=== PATIENT | male | born 1960 | race Hispanic/Latino ===

== ENCOUNTER 2018-12-01 23:03 | Inpatient (IN) | payer MEDICARE ==
[2018-12-01 23:14] VITALS: BMI 24.3
[2018-12-01 23:42] LABS: BASO % 0.3 % (0.0-2.0); EOS # 0.1 K/uL (0.0-0.7); EOS % 1.2 % (0.0-4.0); HEMOGLOBIN 11.9 g/dL (12.0-18.0); LYMPH # 1.7 K/uL (1.0-4.3); LYMPH % 32.7 % (20.0-40.0); MEAN CELL VOLUME 102.5 fL (80.0-94.0); MEAN CORPUSCULAR HEMOGLOBIN 35.7 pg (27.0-31.0); MEAN CORPUSCULAR HGB CONC 34.8 g/dL (33.0-37.0); MEAN PLATELET VOLUME 7.3 fL (7.2-11.7); MONO # 0.5 K/uL (0.0-0.8); NEUT % 55.8 % (50.0-75.0); NRBC % 0.1 % (0.0-2.0); RBC 3.34 Mil/uL (4.40-5.90); RED CELL DISTRIBUTION WIDTH 14.6 % (11.5-14.5); WHITE BLOOD COUNT 5.3 K/uL (4.8-10.8)
[2018-12-01 23:48] LABS: URINE CLARITY Clear (Clear); URINE COLOR STRAW (YELLOW); URINE GLUCOSE (UA) NEGATIVE (Normal)
[2018-12-01 23:49] LABS: URINE BILIRUBIN NEGATIVE (NEGATIVE); URINE BLOOD SMALL (NEGATIVE); URINE LEUKOCYTE ESTERASE NEGATIVE Leu/uL (Negative); URINE PROTEIN 30 mg/dL (NEGATIVE); URINE UROBILINOGEN 0.2 mg/dL (0.2-1.0)
[2018-12-01 23:55] LABS: ALB/GLOB RATIO 1.3 (1.0-2.1); ALBUMIN 4.7 g/dL (3.5-5.0); ALT/SGPT 22 U/L (21-72); AST/SGOT 55 U/L (17-59); BLOOD UREA NITROGEN 16 mg/dL (9-20); CALCIUM 8.9 mg/dl (8.6-10.4); GFR NON-AFRICAN AMERICAN > 60
[2018-12-01 23:58] LABS: BARBITURATES, UR NEGATIVE (NEGATIVE); BENZODIAZEPINES, UR NEGATIVE (NEGATIVE); OPIATES, UR NEGATIVE (NEGATIVE); PHENCYCLIDINE, UR NEGATIVE (NEGATIVE)
--- NOTE | 2018-12-02 01:29 | C.PDOC ---
History Of Present Illness 57 year old male presents for ETOH detox, last drink was a few hours BED AND BREAKFAST INNKEEPER. Denies any complaints at this time. Time Seen by Provider: 12/01/18 23:21 Chief Complaint (Nursing): Psychiatric Evaluation History Per: Patient History/Exam Limitations: no limitations Onset/Duration Of Symptoms: Hrs Current Symptoms Are (Timing): Still Present Suicide/Self Injury Attempted (Context): None Recent travel outside of the [place]: No Past Medical History Reviewed: Historical Data, Nursing Documentation, Vital Signs Vital Signs: Last Vital Signs Temp 98.4 F 12/01/18 23:15 Pulse 80 12/01/18 23:15 Resp 20 12/01/18 23:15 BP 171/90 H 12/01/18 23:15 Pulse Ox 97 12/01/18 23:15 Family History: States: No Known Family Hx - Social History Hx Alcohol Use: Yes Hx Substance Use: No - Immunization History Hx Tetanus Toxoid Vaccination: Yes Hx Influenza Vaccination: Yes Hx Pneumococcal Vaccination: No Review Of Systems Constitutional: Negative for: Fever, Chills Cardiovascular: Negative for: Chest Pain, Palpitations Respiratory: Negative for: Cough, Shortness of Breath Gastrointestinal: Negative for: Nausea, Vomiting Neurological: Negative for: Weakness, Numbness Physical Exam - Physical Exam Appears: Non-toxic Skin: Warm Head: Atraumatic, Normacephalic Eye(s): bilateral: Normal Inspection Oral Mucosa: Moist Chest: Symmetrical, No Tenderness Cardiovascular: Rhythm Regular Respiratory: Normal Breath Sounds, No Rales, No Rhonchi, No Wheezing Gastrointestinal/Abdominal: Soft, No Tenderness Extremity: Other (Abrasions to right upper extremity and right lower extremity) Neurological/Psych: Oriented x3, Normal Speech Gait: Steady ED Course And Treatment - Laboratory Results Result Diagrams: 12/01/18 23:34 12/01/18 23:34 Lab Results: Total Bilirubin 0.5 mg/dL (0.2-1.3) 12/01/18 23:34 AST 55 U/L (17-59) 12/01/18 23:34 ALT 22 U/L (21-72) 12/01/18 23:34 Alkaline Phosphatase 70 U/L (38-126) 12/01/18 23:34 Total Protein 8.2 g/dL (6.3-8.3) 12/01/18 23:34 Albumin 4.7 g/dL (3.5-5.0) 12/01/18 23:34 Globulin 3.5 gm/dL (2.2-3.9) 12/01/18 23:34 Albumin/Globulin Ratio 1.3 (1.0-2.1) 12/01/18 23:34 Urine Color Straw (YELLOW) 12/01/18 23:34 Urine Clarity Clear (Clear) 12/01/18 23:34 Urine pH 6.0 (5.0-8.0) 12/01/18 23:34 Ur Specific [place] 1.010 (1.003-1.030) 12/01/18 23:34 Urine Protein 30 mg/dL (NEGATIVE) 12/01/18 23:34 Urine Glucose (UA) Negative mg/dL (Normal) 12/01/18 23:34 Urine Ketones Negative mg/dL (NEGATIVE) 12/01/18 23:34 Urine Blood Small (NEGATIVE) 12/01/18 23:34 Urine Nitrate Negative (NEGATIVE) 12/01/18 23:34 Urine Bilirubin Negative (NEGATIVE) 12/01/18 23:34 Urine Urobilinogen 0.2 mg/dL (0.2-1.0) 12/01/18 23:34 Ur Leukocyte Esterase Negative Keith/uL (Negative) 12/01/18 23:34 Urine RBC (Auto) 1 /hpf (0-3) 12/01/18 23:34 O2 Sat by Pulse Oximetry: 97 (Room air) Pulse Ox Interpretation: Normal Progress Note: Blood work and urinalysis ordered. Crisis notified. Patient is medically cleared, accepted into detox unit under Dr. Burton. - PA / HEM INSPECTOR / Resident Statement MD/DO has reviewed & agrees with the documentation as recorded. - Scribe Statement The provider has reviewed the documentation as recorded by the Scribe Quirino Donis All medical record entries made by the Scribe were at my direction and personally dictated by me. I have reviewed the chart and agree that the record accurately reflects my personal performance of the history, physical exam, medical decision making, and the department course for this patient. I have also personally directed, reviewed, and agree with the discharge instructions and disposition.
--- NOTE | 2018-12-02 05:10 | PCM.BM ---
<Andrzej Koch - Last Filed: 12/02/18 05:07> Treatment Plan Problems - Problems identified on initial assessmt Ineffective Family Coping: Compromised Date Initiated: 12/02/18 Time Initiated: 04:30 Assessment reference: NA Status: Active Knowledge Deficit: Alcohol Use Date Initiated: 12/02/18 Time Initiated: 04:30 Assessment reference: NA Status: Active Treatment assets and liabiliti Patient Assests: cooperative, ADL independent, good support system, cognitively intact Patient Liabilities: substance abuse - Milieu Protocol Maintain good personal hygiene: daily Encourage regular showers, daily Remind patient to perform daily oral care, daily Assist patient to perform ADL's Maintain personal safety: every shift Educate patient to report safety concerns to staff, every shift Monitor environment for contraband/sharps Medication safety: Monitor for expected outcome, potential side effects: every shift, Assess barriers to learning: every shift, Assess readiness for medication education: every shift <Rossy Burton - Last Filed: 12/05/18 14:37> - Diagnosis (1) Opioid use disorder, severe, dependence Status: Acute Interventions: 12/05/18 14:37 * Assess 7x/week regarding severity of withdrawal * Educate regarding risks, benefits, side effects and alternatives of medications * Use Motivational Interviewing for abstinence * Use CBT for relapse prevention * Medication management for withdrawal symptoms * Encourage medication assisted treatment *
--- NOTE | 2018-12-02 08:44 | PCM.PSYCH ---
Initial Psychiatric Evaluation - Initial Psychiatric Evaluation Type of Admission: Voluntary Legal Status: Capacity Chief Complaint (in patient's own words): "Too much alcohol" History of Present Illness and Precipitating Events: The pt is converted to INPAT status from OBS, b/c he started to withdraw significantly. Patient is seen, chart reviewed and plan discussed with team. Patient is a 57 year old male, with 4 adult children. He has been living in a house with a friend who is paraplegic. Patient has been acting as caregiver to his friend. He is currently unemployed, on disability. Friend's son is now taking care of him. Patient is presenting to detox for alcohol use, he drinks 1 quart of fireball per day. He has been drinking for 20 years, with a period of 1 year sobriety. He denies going to any detox facilities in the past. His girlfriend had recently in August 2018 of cardiac arrest, and he attributes his increased drinking to this incidence. Patient is currently experiencing withdrawal symptoms of nausea, chills, tremors and has history of DTs. Patient denied other recreational drug use, smokes a pack of cigarettes per day of past 30+ years. He describes his mood as feeling very depressed and anxious recently. He denied suicidal and homicidal ideations but he sometimes wishes he were . Post discharge he would like to go back home to take care of friend and attend outpatient AA meetings with his son who is also a recovering alcoholic. Psych Hx Denies Fam Psych HX Son has alcoholism PMHx Recent falls, has scars on his skin Current Medications: Active Medications Generic Name Dose Route Start Last Admin Trade Name Freq PRN Reason Stop Dose Admin Clonidine HCl 0.1 mg 12/02/18 04:10 12/02/18 04:33 Catapres PO 0.1 mg Q6 PRN Administration Symptoms of alcohol withdrawl Hydroxyzine HCl 25 mg 12/02/18 04:10 12/02/18 04:32 Atarax PO 25 mg Q6 PRN Administration Anxiety Ibuprofen 600 mg 12/02/18 04:11 Motrin Tab PO Q6 PRN Pain, moderate (4-7) Ondansetron HCl 4 mg 12/02/18 04:10 Zofran Tab PO Q6 PRN Nausea/Vomiting Past Psychiatric History - Past Psychiatric History Previous Treatment History: Intensive Outpatient Pertinent Medical Hx (Current Medical&Sleep Prob, Allergies): Allergies Allergy/AdvReac Type Severity Reaction Status Date / Time No Known Allergies Allergy Verified 12/01/18 23:13 Buprenorphine HCl/Naloxone HCl [Suboxone 4 mg-1 mg Sl Film] 1 each SL DAILY 12/01/18 Review of Systems - Psychiatric Psychiatric: Abnormal Sleep Pattern, Anhedonia, Anxiety, Change in Appetite, Depression, Difficulty Concentrating, Mood Swings. absent: Hallucinations, Homicidal Ideation, Suicidal Ideation Mental Status Examination - Personal Presentation Personal Presentation: Looks older than stated age (unkempt) - Affect Affect: Constricted - Motor Activity Motor Activity: Calm - Reliability in Providing Information Reliability in Providing Information: Good - Speech Speech: Organized - Mood Mood: Depressed, Anxious - Formal Thought Process Formal Thought Process: No Impairment - Cognitive Functions Orientation: Person, Place, Situation Sensorium: Alert Attention/Concentration: Attentive Estimate of Intelligence: Average Judgement: Intact, as evidence by: Insight regarding need for hospitalization Memory: Recent intact, as evidence by: Ability to recall events of the day, Remote intact, as evidenced by: Ability to recall historical events - Risk Risk: Withdrawal, Diminished functioning - Strength & Assets Inventory Strength & Assets Inventory: Cooperative - Limitations Limitations: Other DSM 5 DX - DSM 5 DSM 5 Diagnosis: Alcohol withdrawal Alcohol use d/o - severe Depressive d/o - unspecified - Recommended/Plan of Treatment Treatment Recommendations and Plan of Treatment: Taper with librium Gabapentin for augmentation if needed As needed medications All risks, benefits and alternatives of the meds discussed, and the pt agreed and understood. Attend groups and activities Supportive therapy and psychoeducation [place] for abstinence CBT for relapse prevention Encourage MAT Refer to rehab or IOP, and self-help groups Teach healthy lifestyle methods, i.e. diet, exercise, meditation Smoking cessation with [place] Nicotine patch if needed 34 min Projected ELOS: 5-6 days - Smoking Cessation Smoking Cessation Initiated: Yes
[2018-12-02] MEDS: Multiple Vitamins Tab PO SCH (10:00)
[2018-12-03] MEDS: Multiple Vitamins Tab PO SCH (09:07)
--- NOTE | 2018-12-03 15:18 | PCM.PYCHPN ---
Psychiatric Progress Note - Psychiatric Progress Note Patient seen today, length of contact: 16 min Patient Chief Complaint: "Tired, shoulder pain" Problems Identified/Issues Discussed: The pt is seen, chart reviewed, case discussed with staff. The pt is compliant with medications and reports no side-effects. Symptoms are improving but needs more time to stabilize. Pt attends groups and activities. Support given, psycho-education provided. After care discussed. Medication Change: Yes (detox changes daily) Medical Record Reviewed: Yes Mental Status Examination - Cognitive Function Orientation: Person, Place, Situation Memory: Intact Attention: Poor Concentration: Poor Association: WNL Fund of Knowledge: Poor - Mood Mood: Depressed, Anxious - Affect Affect: Constricted - Speech Speech: Appropriate - Formal Thought Process Formal Thought Process: No Impairment - Suicidal Ideation Suicidal Ideation: No - Homicidal Ideation Homicidal Ideation: No Goal/Treatment Plan - Goal/Treatment Plan Need for Continued Stay: Discharge may exacerbated symptoms, Severe functional impairment Progress Toward Problem(s) and Goals/Treatment Plan: Taper with librium Gabapentin for augmentation if needed As needed medications All risks, benefits and alternatives of the meds discussed, and the pt agreed and understood. Attend groups and activities Supportive therapy and psychoeducation [place] for abstinence CBT for relapse prevention Encourage MAT Refer to rehab or IOP, and self-help groups Teach healthy lifestyle methods, i.e. diet, exercise, meditation Smoking cessation with [place] Nicotine patch if needed
[2018-12-04] MEDS: Multiple Vitamins Tab PO SCH (09:52)
[2018-12-05] MEDS: Multiple Vitamins Tab PO SCH (09:12)
--- NOTE | 2018-12-05 14:56 | PCM.PYCHPN ---
Psychiatric Progress Note - Psychiatric Progress Note Patient seen today, length of contact: 16 min Patient Chief Complaint: "Tired, shoulder pain" Problems Identified/Issues Discussed: The pt is seen, chart reviewed, case discussed with staff. The pt is compliant with medications and reports no side-effects. Symptoms are improving but needs more time to stabilize. Pt attends groups and activities. Support given, psycho-education provided. After care discussed. Medication Change: Yes (detox changes daily) Medical Record Reviewed: Yes Mental Status Examination - Cognitive Function Orientation: Person, Place, Situation Memory: Intact Attention: Poor Concentration: Poor Association: WNL Fund of Knowledge: Poor - Mood Mood: Depressed, Anxious - Affect Affect: Constricted - Speech Speech: Appropriate - Formal Thought Process Formal Thought Process: No Impairment - Suicidal Ideation Suicidal Ideation: No - Homicidal Ideation Homicidal Ideation: No Goal/Treatment Plan - Goal/Treatment Plan Need for Continued Stay: Discharge may exacerbated symptoms, Severe functional impairment Progress Toward Problem(s) and Goals/Treatment Plan: Taper with librium Gabapentin for augmentation if needed As needed medications All risks, benefits and alternatives of the meds discussed, and the pt agreed and understood. Attend groups and activities Supportive therapy and psychoeducation [place] for abstinence CBT for relapse prevention Encourage MAT Refer to rehab or IOP, and self-help groups Teach healthy lifestyle methods, i.e. diet, exercise, meditation Smoking cessation with [place] Nicotine patch if needed
--- NOTE | 2018-12-05 14:56 | PCM.PYCHPN ---
Psychiatric Progress Note - Psychiatric Progress Note Patient seen today, length of contact: 16 min Patient Chief Complaint: "Tired, shoulder pain" Problems Identified/Issues Discussed: The pt is seen, chart reviewed, case discussed with staff. The pt is compliant with medications and reports no side-effects. Symptoms are improving but needs more time to stabilize. Pt attends groups and activities. Support given, psycho-education provided. After care discussed. Medication Change: Yes (detox changes daily) Medical Record Reviewed: Yes Mental Status Examination - Cognitive Function Orientation: Person, Place, Situation Memory: Intact Attention: Poor Concentration: Poor Association: WNL Fund of Knowledge: Poor - Mood Mood: Depressed, Anxious - Affect Affect: Constricted - Speech Speech: Appropriate - Formal Thought Process Formal Thought Process: No Impairment - Suicidal Ideation Suicidal Ideation: No - Homicidal Ideation Homicidal Ideation: No Goal/Treatment Plan - Goal/Treatment Plan Need for Continued Stay: Discharge may exacerbated symptoms, Severe functional impairment Progress Toward Problem(s) and Goals/Treatment Plan: Taper with librium Gabapentin for augmentation if needed As needed medications All risks, benefits and alternatives of the meds discussed, and the pt agreed and understood. Attend groups and activities Supportive therapy and psychoeducation [place] for abstinence CBT for relapse prevention Encourage MAT Refer to rehab or IOP, and self-help groups Teach healthy lifestyle methods, i.e. diet, exercise, meditation Smoking cessation with [place] Nicotine patch if needed
--- NOTE | 2018-12-06 08:44 | PCM.PYCHDC ---
Mental Status Examination - Mental Status Examination Orientation: Person Discharge Summary - Discharge Note Consultations:: List each consultation separately and include: 1. Reason for request. 2. Findings. 3. Follow-up Summary of Hospital Course include:: 1. Description of specific treatment plan utilized for patients during their course of treatmen. 2. Summarize the time- course for resolution of acute symptoms and/or regressed behaviors. 3. Describe issues identified and worked on during hospitalization. 4. Describe medication utilized. 5. Describe medical problems identified and treated. 6. Reassessment of suicide risk Summary of Hospital Course: The pt is converted to INPAT status from OBS, b/c he started to withdraw significantly. Patient is seen, chart reviewed and plan discussed with team. Patient is a 57 year old male, with 4 adult children. He has been living in a house with a friend who is paraplegic. Patient has been acting as caregiver to his friend. He is currently unemployed, on disability. Friend's son is now taking care of him. Patient is presenting to detox for alcohol use, he drinks 1 quart of fireball per day. He has been drinking for 20 years, with a period of 1 year sobriety. He denies going to any detox facilities in the past. His girlfriend had recently in August 2018 of cardiac arrest, and he attributes his increased drinking to this incidence. Patient is currently experiencing withdrawal symptoms of nausea, chills, tremors and has history of DTs. Patient denied other recreational drug use, smokes a pack of cigarettes per day of past 30+ years. He describes his mood as feeling very depressed and anxious recently. He denied suicidal and homicidal ideations but he sometimes wishes he were . Post discharge he would like to go back home to take care of friend and attend outpatient AA meetings with his son who is also a recovering alcoholic. Psych Hx Denies Fam Psych HX Son has alcoholism PMHx Recent falls, has scars on his skin He went to [facility] - Diagnosis (1) Opioid use disorder, severe, dependence Current Visit: Yes Status: Acute - Final Diagnosis (DSM 5) Condition upon Discharge: GOOD Disposition: HOME/ ROUTINE Follow-up Treatment Plan: Taper with librium Gabapentin for augmentation if needed As needed medications All risks, benefits and alternatives of the meds discussed, and the pt agreed and understood. Attend groups and activities Supportive therapy and psychoeducation [place] for abstinence CBT for relapse prevention Encourage MAT Refer to rehab or IOP, and self-help groups Teach healthy lifestyle methods, i.e. diet, exercise, meditation Smoking cessation with [place] Nicotine patch if needed Prescriptions/Medication Reconciliation: Gabapentin [Neurontin] 300 mg PO BID #60 cap hydrOXYzine HCl [Atarax] 25 mg PO BID PRN #60 tab PRN Reason: Anxiety Multivitamins [Hexavitamin] 1 tab PO DAILY #30 tab traZODone [Desyrel] 50 mg PO HS PRN #30 tab PRN Reason: Insomnia
[2018-12-06] MEDS: Multiple Vitamins Tab PO SCH (09:10)
[2018-12-06 10:07] VITALS: BP 150/93; PULSE 88; RESP 18; TEMP 97.6; O2SAT 99
== END 2018-12-06 09:30 | disposition home or self-care (01) | DRG 895 ==
LOC: C.ER 23:03 → C.9E 12-02 01:02 → C.7D 12-02 04:07 → OBSVTOIN 12-02 08:43
PROVIDERS: ADMIT Psychiatry & Neurology Psychiatry; ATTEND Psychiatry & Neurology Psychiatry
PROC: HZ2ZZZZ Detoxification Services for Substance Abuse Treatment (ICD-10-PCS; principal; 2018-12-02)
PROC: HZ46ZZZ Group Counseling for Substance Abuse Treatment, Psychoeducation (ICD-10-PCS; 2018-12-02)
PROC: HZ59ZZZ Individual Psychotherapy for Substance Abuse Treatment, Supportive (ICD-10-PCS; 2018-12-02)
PROC: HZ80ZZZ Medication Management for Substance Abuse Treatment, Nicotine Replacement (ICD-10-PCS; 2018-12-02)
DX: F10.231 Alcohol dependence with withdrawal delirium (principal); F11.20 Opioid dependence, uncomplicated; F32.9 Major depressive disorder, single episode, unspecified; F17.210 Nicotine dependence, cigarettes, uncomplicated; Y90.8 Blood alcohol level of 240 mg/100 ml or more

== ENCOUNTER 2018-12-06 13:54 | Emergency (ER) | payer MEDICARE ==
[2018-12-06 13:54] VITALS: BMI 24.3
[2018-12-06 14:11] VITALS: TEMP 97.4
[2018-12-06 15:03] VITALS: RESP 22
--- NOTE | 2018-12-06 15:11 | C.PDOC ---
History Of Present Illness 57 year old male BIBA for evaluation of suspected ETOH/drug use. Pt admits to ETOH use, but is vague about details of how much he consumed. He has no current physical complaints. Time Seen by Provider: 12/06/18 13:57 Chief Complaint (Nursing): Substance Abuse History Per: Patient, EMS History/Exam Limitations: intoxication Current Symptoms Are (Timing): Still Present Modifying Factor(s): Alcohol Severity: Moderate Involuntary Hold By: Emergency Physician Past Medical History Reviewed: Historical Data, Nursing Documentation, Vital Signs Vital Signs: Last Vital Signs Temp 97.4 F L 12/06/18 13:59 Pulse 68 12/06/18 15:02 Resp 22 12/06/18 15:02 BP 118/69 12/06/18 15:02 Pulse Ox 96 12/06/18 15:02 - Medical History PMH: No Chronic Diseases Family History: States: No Known Family Hx - Social History Hx Alcohol Use: Yes Hx Substance Use: Yes - Immunization History Hx Tetanus Toxoid Vaccination: Yes Hx Influenza Vaccination: Yes Hx Pneumococcal Vaccination: No Review Of Systems Constitutional: Positive for: Other (alcohol abuse) Cardiovascular: Negative for: Chest Pain, Palpitations Respiratory: Negative for: Shortness of Breath Gastrointestinal: Negative for: Nausea, Vomiting, Abdominal Pain Neurological: Negative for: Headache, Dizziness Physical Exam - Physical Exam Appears: Well, Non-toxic, No Acute Distress, Unkempt, Other (smells of ETOH) Skin: Warm, Dry Head: Atraumatic, Normacephalic Eye(s): bilateral: Normal Inspection, PERRL (2mm pupils. ), EOMI Oral Mucosa: Moist Neck: Normal ROM, No Midline Cervical Tenderness, No Paracervical Tenderness, No Step Off Deformity, Supple Cardiovascular: Rhythm Regular Respiratory: Normal Breath Sounds, No Rales, No Rhonchi, No Wheezing Gastrointestinal/Abdominal: Normal Exam, Bowel Sounds, Soft, No Tenderness Extremity: Normal ROM Extremity: Bilateral: Atraumatic, Normal Color And Temperature, Normal ROM Neurological/Psych: Other (intoxicated, arousable to verbal stimuli, able to follow commands) ED Course And Treatment O2 Sat by Pulse Oximetry: 96 (RA) Pulse Ox Interpretation: Normal Progress Note: Accucheck ordered and reviewed. Reevaluation Time: 17:00 Reassessment Condition: Improved (Patient is currently AAOx3, ambulating normally in the ED. He is clinically sober, will discharge.) Medical Decision Making Medical Decision Making: Progress/Update: Pending sobriety Pt stable for discharge home. Disposition Counseled Patient/Family Regarding: Diagnosis, Need For Followup - Disposition Referrals: [facility] [Outside] Disposition: HOME/ ROUTINE Disposition Time: 17:00 Condition: STABLE Instructions: Alcohol Abuse and Alcoholism (DC) Forms: [employer] (Swedish) Print Language: PUERTO RICAN - Clinical Impression Clinical Impression: Alcohol abuse - Scribe Statement The provider has reviewed the documentation as recorded by the Scribe (Teresa Mills) Provider Attestation: All medical record entries made by the Scribe were at my direction and personally dictated by me. I have reviewed the chart and agree that the record accurately reflects my personal performance of the history, physical exam, medical decision making, and the department course for this patient. I have also personally directed, reviewed, and agree with the discharge instructions and disposition.
[2018-12-06 16:40] VITALS: BP 122/75; PULSE 67
[2018-12-06 17:00] VITALS: O2SAT 96
== END 2018-12-06 17:22 | disposition home or self-care (01) ==
LOC: C.ER 13:54
DX: F10.10 Alcohol abuse, uncomplicated (principal); Y90.9 Presence of alcohol in blood, level not specified